=== PATIENT | female | born 1995 | race African-American/Black ===

== ENCOUNTER 2023-12-01 15:25 | Emergency (ER) | payer BC ==
[~2023-12-01] VITALS: Ht 162.6 cm; Wt 97.0 kg
[2023-12-01 15:35] VITALS: BP 156/92; TEMP 98.4
[2023-12-01] MEDS: METHYLPREDNISOLONE SOD SUCC 125MG/2ML (ACT-O-VIAL) IM STA (18:28)
[2023-12-01] MEDS ORDERED: ALBU18HF2 IH (18:28)
[2023-12-01] MEDS ORDERED: P50 MT (18:28)
[2023-12-01 18:36] VITALS: PULSE 84; RESP 16; O2SAT 97
[2023-12-01] MEDS: IPRATROPIUM BROMIDE (0.02%) 0.5MG/2.5ML NEB HHN STA (18:36)
[2023-12-01] MEDS: ALBUTEROL (0.083%) 2.5MG/3ML NEB HHN STA (18:36)
== END 2023-12-01 18:59 | disposition home or self-care (01) ==
LOC: ER 15:25
DX: J45.909 Unspecified asthma, uncomplicated (principal); Z90.89 Acquired absence of other organs
CPT/HCPCS: 81025; 94640; 99283; J2919; Z7610 ×3

== ENCOUNTER 2024-04-20 11:19 | Emergency (ER) | payer MEDICAID ==
[~2024-04-20] VITALS: Ht 162.6 cm; Wt 101.1 kg
[~2024-04-20 11:19] MED LIST: ALBU18HF2 IH; P50 MT
[2024-04-20 11:41] VITALS: O2SAT 99
[2024-04-20 14:48] LABS: CLARITY URINE CLEAR (CLEAR); COLOR URINE YELLOW (YELLOW); GLUCOSE URINE NEGATIVE (NEGATIVE); KETONES URINE NEGATIVE (NEGATIVE); LEUKOCYTE ESTERASE URINE 1+ (NEGATIVE); NITRITE URINE NEGATIVE (NEGATIVE); OCCULT BLOOD URINE NEGATIVE (NEGATIVE); PROTEIN URINE NEGATIVE (NEGATIVE); SPECIFIC GRAVITY URINE 1.015 (1.005-1.030); UROBILINOGEN URINE 0.2 E.U./dL (0.2-1.0)
[2024-04-20 15:23] LABS: BACTERIA URINE TRACE; SQUAMOUS EPITHELIAL CELL URINE 3+ /lpf (RARE/1+)
[2024-04-20 15:24] LABS: RBC URINE NONE SEEN /hpf (0-2)
[2024-04-20 15:40] LABS: CHLORIDE 103 mEq/L (98-107); POTASSIUM 4.2 mEq/L (3.5-5.1); SODIUM 138 mEq/L (136-145)
[2024-04-20 15:41] LABS: CALCIUM 9.9 mg/dL (8.7-10.4); CARBON DIOXIDE 29 mEq/L (21-32)
[2024-04-20 15:42] LABS: BASOPHILS % 0.7 % (0.0-2.0); HEMATOCRIT. 39.3 % (36.0-48.0); HEMOGLOBIN. 12.3 g/dL (12.0-16.0); LYMPHOCYTES % 48.5 % (20.0-50.0); MEAN CORPUSCULAR HEMOGLOBIN 27.3 pg (28.0-32.0); MEAN CORPUSCULAR HGB CONC 31.4 g/dL (31.0-37.0); MEAN CORPUSCULAR VOLUME 86.8 fL (81.0-99.0); MEAN PLATELET VOLUME 8.6 fl (7.4-10.4); MONOCYTES % 5.7 % (2.0-8.0); NEUTROPHILS % 44.1 % (40.0-76.0); PLATELET 301 x1000/uL (130-400); RED BLOOD CELL COUNT 4.53 mill/uL (4.2-5.4); RED CELL DISTRIBUTION WIDTH 13.8 % (11.6-14.6); WHITE BLOOD COUNT 6.2 x1000/uL (4.5-11.0)
[2024-04-20 15:46] LABS: CREATININE 0.9 mg/dL (0.6-1.0); GLUCOSE 86 mg/dL (70-105); UREA NITROGEN BLOOD 8 mg/dL (9-23)
[2024-04-20 15:48] LABS: B-HCG QUANTITATIVE 1 mIU/mL (<3)
[2024-04-20 16:12] VITALS: BP 144/78; PULSE 88; RESP 18; TEMP 36.9; O2SAT 98
== END 2024-04-20 16:13 | disposition home or self-care (01) ==
LOC: ER 12:19
DX: N93.9 Abnormal uterine and vaginal bleeding, unspecified (principal); E66.9 Obesity, unspecified; J45.909 Unspecified asthma, uncomplicated; Z90.89 Acquired absence of other organs; Z79.899 Other long term (current) drug therapy
CPT/HCPCS: 36415; 80048; 81003; 81025; 84702; 85025; 99283